=== PATIENT | male | born 1955 ===

== ENCOUNTER 2016-07-02 20:12 | Emergency (ER) | payer OTHER ==
[~2016-07-02] VITALS: Ht 172.7 cm; Wt 81.8 kg
[2016-07-02 20:22] VITALS: BP 144/89; PULSE 98; RESP 18; O2SAT 98
--- NOTE | 2016-07-02 20:41 | DRSVH ---
PROCEDURE: X-RAY CHEST ONE VIEW, PORTABLE ([id number]) INDICATIONS: cp TECHNIQUE: One view of the chest was acquired. COMPARISON: None. FINDINGS: Surgical changes and devices: None. Lungs and pleura: No pleural effusions or pneumothorax. Peribronchial cuffing is present. Lungs are otherwise clear. Mediastinum: Mediastinal contours appear normal. Heart size is normal. Bones and chest wall: No suspicious bony lesions. Overlying soft tissues appear unremarkable. IMPRESSION: Mild bronchitis. Dictated by: Kar Lucas M.D. on 07/02/2016 at 20:39 Approved by: Kar Lucas M.D. on 07/02/2016 at 20:39
[2016-07-02 22:40] LABS: BASOPHILS % (AUTO) 0.8 % (0-3); EOSINOPHILS % (AUTO) 3.2 % (0-5); MONOCYTES % (AUTO) 9.2 % (4-12); Mean Corpuscular Hemoglobin 31.6 pg (27.0-35.0); Mean Corpuscular Volume 92.7 fL (81-100); NEUTROPHILS % (AUTO) 54.6 % (40-74); Platelet Count 236 bil/L (150-400)
[2016-07-02 22:42] VITALS: BP 141/81; PULSE 87; RESP 25; O2SAT 97
--- NOTE | 2016-07-02 23:24 | ED.REPORT ---
HPI-Chest Pain 40 and Over Date of Service July 02, 2016 ED Provider: Epifanio Bansal MD A 61 year old male with a history of hypertension and TIA presents to the ED with pleuritic chest pain onset two days ago. The pain is described as "heaviness." The patient also reports headache, diaphoresis, dizziness, shortness of breath, and imbalance. He denies extremity pain, extremity swelling , recent injury/trauma, or other symptoms. Nursing Notes Stated Complaint: CHEST HEAVY AND CRAMPING,HANDS CRAMPING Chief Complaint: General Complaint Nursing Notes Reviewed: Yes Allergies: Uncoded Allergies: PENICILLIN (Allergy, Unknown, 07/02/16) Scheduled PRN Ibuprofen (Ibuprofen) 600 Mg Tablet 600 MG PO TID PRN PRN For Pain General Time Seen by MD: 22:44 Chief Complaint Chest pain Hx Obtained From: Patient Arrived By: Walk-in Sudden in Onset?: No Onset Occurred: 2 days ago Symptom Duration: Since onset Location: : Chest left: Chest right Quality: Heaviness, Painful, Pleuritic Severity: Current: Moderate Severity: Maximum: Moderate Pertinent Negative: Relieved by nothing Context Related History: Reports: Hypertension Recent Healthcare: No recent doctor visit Past Medical History Past Medical History TIA Hypertension Past Surgical History Neck surgery Smoking History Former Smoker Social History Alcohol Use: Denies alcohol use Drug Use: Denies drug use Other Social History: Good social support Ambulatory Status Independent Review of Systems Review of Systems Note: + Imbalance Constitutional: Denies: Fever Respiratory: Reports: Pleuritic pain, Shortness of breath, Denies: Non-productive cough Cardiovascular: Reports: Chest pain GI: Denies: Diarrhea, Vomiting Musculoskeletal: Denies: Extremity pain, Extremity swelling Skin: Reports Diaphoresis Neurologic: Reports: Dizziness, Headache Complete sys rev & neg: except as marked. Physical Exam Initial Vital Signs Vital Signs (First) Date Time Temp Pulse Resp B/P Pulse Ox O2 Delivery O2 Flow Rate FiO2 07/02/16 20:22 37.0 98 18 144/89 98 Room Air Initial VS: Reviewed, Vital signs normal Head / Eyes: Atraumatic, Normocephalic ENT: Conjunctiva normal, No scleral icterus Neurologic: Alert, Oriented, Nonfocal Psychiatric: Mood/affect normal, Behavior normal, Normal thought content General/Constitutional: Awake, Alert, No acute distress Respiratory / Chest: Breath sounds NL, Breath sounds = bilat, No respiratory distress Chest Wall / Ribs: Positive: Chest tender lower R, Chest tender upper R Cardiovascular: Heart rate NL, Regular rhythm, Heart sounds NL Neck: Supple, Full range of motion, No JVD Lower Extremity / Pelvis / MS: Inspection NL, Non-tender, No edema Skin: Color NL Color / Condition: Positive: Diaphoresis present Interpretation & Diagnostics Lab Results Interpretation Result Diagram: 07/02/16223207/02/16 223 Test 07/02/16 22:29 07/02/16 22:33 07/03/16 00:19 Hold [place] Top Tube Received (Received) White Blood Count 6.5th/mm3 (3.8-10.1) Red Blood Count 4.78mil/mm3 (4.40-5.80) Hemoglobin 15.1g/dL (13.8-17.2) Hematocrit 44.3% (41.0-50.0) Mean Corpuscular Volume 92.7fL (81-100) Mean Corpuscular Hemoglobin 31.6pg (27.0-35.0) Mean Corpuscular Hemoglobin Concent 34.1% (32.0-37.0) Red Cell Distribution Width 14.3% (12.3-15.4) Platelet Count 236bil/L (150-400) Neutrophils (%) (Auto) 54.6% (40-74) Lymphocytes (%) (Auto) 31.9% (14-46) Monocytes (%) (Auto) 9.2% (4-12) Eosinophils (%) (Auto) 3.2% (0-5) Basophils (%) (Auto) 0.8% (0-3) Sodium Level 143mEq/L (134-144) Potassium Level 4.2mEq/L (3.5-5.2) Chloride Level 106mEq/L (97-108) Carbon Dioxide Level 24mmol/L (18-29) Blood Urea Nitrogen 14mg/dL (8-27) Creatinine 1.28mg/dL (0.76-1.27) Estimat Glomerular Filtration Rate 60mL/min (>59) Glucose Level 129mg/dL (60-99) Calcium Level 8.8mg/dL (8.5-10.1) Magnesium Level 2.1mg/dL (1.6-2.6) Total Bilirubin 0.2mg/dL (0.0-1.2) Aspartate Amino Transf (AST/SGOT) 27U/L (0-50) Alanine Aminotransferase (ALT/SGPT) 19U/L (0-44) Alkaline Phosphatase 80U/L (25-160) Total Protein 6.9g/dL (6.4-8.4) Albumin 4.2g/dL (3.4-5.0) D-Dimer < 0.50mg/L FEU (<0.50) Troponin T 0.010ug/L (0.0-0.011) Lab values outside NL range: no clinical significance. Lab Results Interpretation: Troponin negative 2, d-dimer negative ECG Interpretation ECG Interpretation: Sinus rhythm rate 88 Time: 21:53 Interpreted by: ED physician ECG Interpretation: Sinus rhythm rate 81 Time: 23:53 Interpreted by: ED physician X-Ray Chest Interpretation Chest Xray Interpretation: IMPRESSION: Mild bronchitis. Dictated by: Kar Lucas M.D. on 07/02/2016 at 20:39 View: Portable, 1 view Interpretation / Wet Read by: Interpret - Radiologist Re-Eval/Medical Decision Med Decision/Clinical Course 61-year-old male who presents with right-sided upper chest wall pain. EKG negative 2, troponin negative 2, d-dimer negative, chest x-ray negative. No evidence of serious illness at this time. Time of Eval: 23:37 Patient Status: Condition improved Re-Evaluation/Progress Note: Discussed with patient lab and x-ray results with plan for repeat labs. Time of Eval: 01:20 Patient Status: Condition improved Re-Evaluation/Progress Note: Discussed with patient x-ray and lab results, diagnosis, and plan for discharge. Follow-up and return to the ER instructions given. Patient agrees with plan for care and all questions were addressed. Counseled Regarding: Diagnosis, Lab results, Need for follow-up, When/why to return to ED Discharge & Departure Primary Impression: Pleurisy Additional Impression: Chest pain with low risk for cardiac etiology Disposition: Home Discharge Condition All VS Reviewed: Yes Condition: Improved Patient Instructions: Acute Bronchitis (GEN), Pleurisy (GEN) Additional Instructions: No evidence on your testing of significant heart or lung disease. Specifically , the troponin heart enzyme test is negative 2, the EKG is negative 2, and the d-dimer lung blood clot test is negative. Your pain is most likely due to chest wall inflammation and/or viral infection. Antibiotics would not be helpful. Ibuprofen 600 mg 3 times a day with food, #30 prescription written. This is also available [id number] if your insurance does not cover the prescription form. See your regular doctor she have persistent symptoms. Call me at [phone] between the hours of 9 PM and 6 AM for the next couple of nights if you have any questions or concerns. Referrals: NOPCP (PCP) Juju Swenson MD Attestation Portions of this note were transcribed by Rosalie Pollack. I, Dr. Bansal, personally performed the history, physical exam, and medical decision-making; I reviewed and confirmed the accuracy of the information in the transcribed note. Signed by: Chanel Hernadez, 07/03/2016, 02:05 copies to: Juju Swenson MD, Howard L MD July 02, 2016 23:24 ROSALIE POLLACK July 02, 2016 23:36
[2016-07-02 23:27] LABS: Magnesium 2.1 mg/dL (1.6-2.6); TROPONIN T 0.01 ug/L (0.0-0.011)
[2016-07-03] MEDS ORDERED: IBUP-1827 PO (01:23)
[2016-07-03 01:40] VITALS: BP 128/70; PULSE 82; RESP 14; O2SAT 98
== END 2016-07-03 01:45 | disposition left against medical advice (07) ==
LOC: SED 20:12
DX: R09.1 Pleurisy (principal); R07.89 Other chest pain; I10 Essential (primary) hypertension; Z86.73 Personal history of transient ischemic attack (TIA), and cerebral infarction without residual deficits; Z87.891 Personal history of nicotine dependence; Z88.0 Allergy status to penicillin
CPT/HCPCS: 36415; 71010; 80053; 83735; 84484; 85025; 85378; 93005; 96374; 99285; J1885